=== PATIENT | male | born 1990 | race Caucasian/White ===

== ENCOUNTER 2019-04-06 11:20 | Emergency (ER) | payer BC ==
[~2019-04-06] VITALS: Ht 177.8 cm; Wt 62.6 kg
[~2019-04-06 11:20] MED LIST: AMOXICILLIN500 MG PO; AMOXIL500 MG PO; ATARAX25 MG PO; FLONASE0.05 MG/AC NS; KEFLEX500 MG PO; MEDROL DOSEPAK4 MG PO; MOTRIN400 MG PO; NKHM; ULTRAM50 MG PO; ZOFRAN ODT4 MG SL; ZYRTEC10 M2 PO; ZYRTEC10 MG PO
[2019-04-06] MEDS ORDERED: Bactroban Oint22 GM T (12:14)
[2019-04-06] MEDS ORDERED: SEPTDS PO (12:14)
[2019-04-06] MEDS ORDERED: CEPHALEXIN500 M1 PO (12:14)
== END 2019-04-06 12:21 | disposition home or self-care (01) ==
LOC: ED 11:20
DX: T65.891A Toxic effect of other specified substances, accidental (unintentional), initial encounter (principal); T25.49 Corrosion of unspecified degree of multiple sites of ankle and foot; G43.909 Migraine, unspecified, not intractable, without status migrainosus; Z23 Encounter for immunization; Y93.89 Activity, other specified; Y92.69 Other specified industrial and construction area as the place of occurrence of the external cause; Y99.8 Other external cause status

== ENCOUNTER 2020-02-22 11:55 | Emergency (ER) | payer BC ==
[~2020-02-22] VITALS: Ht 175.2 cm; Wt 61.2 kg
[~2020-02-22 11:55] MED LIST changes: +Bactroban Oint22 GM T; +CEPHALEXIN500 M1 PO; +SEPTDS PO
[2020-02-22] MEDS ORDERED: AMOXICILLIN500 M2 PO (12:27)
[2020-02-22] MEDS ORDERED: NAPROSYN500 MG PO (12:27)
== END 2020-02-22 12:30 | disposition home or self-care (01) ==
LOC: ED 11:55
DX: K08.89 Other specified disorders of teeth and supporting structures (principal); Z79.899 Other long term (current) drug therapy